=== PATIENT | female | born 2000 | race Caucasian/White ===

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

== ENCOUNTER 2019-03-03 16:38 | Emergency (ER) | payer OTHER ==
[~2019-03-03] VITALS: Ht 167 cm; Wt 88.9 kg
[~2019-03-03 16:38] MED LIST changes: +AMOX-358 PO
[2019-03-03] MEDS ORDERED: DEXT20TA8 (17:01)
--- NOTE | 2019-03-03 18:10 | ED General ---
General Chief Complaint: Cough/Cold/Flu Symptoms Stated Complaint: CONGESTION/HEADACHE Nursing Triage Note: COUGH, CONGESTION, HEADACHE, AND BODY ACHES. HAS TAKEN TYLENOL AND NYQUIL TODAY. Nursing Sepsis Screen: No Definite Risk History of Present Illness Date Seen by Provider: Mar 03, 2019 Time Seen by Provider: 17:00 Initial Comments 19-year-old female presents for cough, congestion, headache and body aches. She's been using DayQuil and NyQuil with some improvement in her symptoms. 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 Timing/Duration: 1-2 Days Severity: Mild Associated Systoms: Cough, Headaches; No Loss of Appetite; Malaise; No Nausea/Vomiting, No Seizure, No Shortness of Air, No Syncope; Weakness Allergies and Home Medications Allergies Coded Allergies: No Known Drug Allergies (Unverified , 01/21/18) Patient Home Medication List Home Medication List Reviewed: Yes Review of Systems Review of Systems Constitutional: no symptoms reported, see HPI; No chills, No diaphoresis, No fever; malaise EENTM: see HPI, no symptoms reported Respiratory: see HPI, cough; No phlegm, No short of breath Gastrointestinal: no symptoms reported, see HPI Genitourinary: no symptoms reported, see HPI Skin: no symptoms reported, see HPI Past Ntllzoj-Mkdnsa-Dmgzwz Hx Past Med/Social Hx: Reviewed Nursing Past Med/Soc Hx Patient Social History Alcohol Use: Occasionally Uses Recreational Drug Use: No Smoking Status: Never a Smoker Recent Foreign Travel: No Contact w/Someone Who Travel: No Recent Infectious Disease Expo: No Recent Hopitalizations: No Past Medical History Surgeries: Yes (DENTAL) Respiratory: No Cardiac: No Neurological: No Last Menstrual Period: Mar 03, 2019 Genitourinary: No Gastrointestinal: No Musculoskeletal: No Endocrine: No HEENT: No Cancer: No Psychosocial: No Blood Disorders: Yes (IGA DEF) Physical Exam Vital Signs Vital Signs - First Documented 03/03/19 16:50 Temp 36.7 Pulse 90 Resp 16 B/P (MAP) 141/80 (100) Pulse Ox 98 O2 Delivery Room Air Capillary Refill : Less Than 3 Seconds Height, Weight, BMI Height: 5'7.00" Weight: 188lbs. oz. 85.232242sp; 31.00 BMI Method:Stated General Appearance: No Apparent Distress, WD/WN Eyes: Bilateral Eye Normal Inspection, Bilateral Eye PERRL, Bilateral Eye EOMI HEENT: PERRL/EOMI, TMs Normal, Normal ENT Inspection; No Pharyngeal Erythema, No Tonsillar Exudate; Tonsillar Enlargement (no erythema or exudate) Neck: Full Range of Motion, Normal Inspection, Non Tender, Carotid Bruit Respiratory: Chest Non Tender, Lungs Clear, Normal Breath Sounds Cardiovascular: Regular Rate, Rhythm, No Murmur, Normal Peripheral Pulses Gastrointestinal: Normal Bowel Sounds, Non Tender, Soft Neurologic/Psychiatric: Alert, Oriented x3, No Motor/Sensory Deficits, Normal Mood/Affect Skin: Normal Color, Warm/Dry, Other (left upper arm, site of tick bite healed, no erythema, induration, or warmth) Lymphatic: No Adenopathy Progress/Results/Core Measures Suspected Sepsis Recent Fever Within 48 Hours: No Infection Criteria Present: Suspected New Infection New/Unexplained Altered Menta: No Sepsis Screen: No Definite Risk SIRS Temperature: Pulse: 90 Respiratory Rate: 16 Laboratory Tests 03/03/19 18:04: White Blood Count 10.0 Blood Pressure 141 /80 Mean: 100 Laboratory Tests 03/03/19 18:04: Platelet Count 257 Results/Orders Lab Results Laboratory Tests Test 03/03/19 18:04 Range/Units White Blood Count 10.0 4.3-11.0 10^3/uL Red Blood Count 5.23 4.35-5.85 10^6/uL Hemoglobin 14.5 11.5-16.0 G/DL Hematocrit 44 35-52 % Mean Corpuscular Volume 85 80-99 FL Mean Corpuscular Hemoglobin 28 25-34 PG Mean Corpuscular Hemoglobin Concent 33 32-36 G/DL Red Cell Distribution Width 15.5 H 10.0-14.5 % Platelet Count 257 130-400 10^3/uL Mean Platelet Volume 9.5 7.4-10.4 FL Neutrophils (%) (Auto) 78 H 42-75 % Lymphocytes (%) (Auto) 13 12-44 % Monocytes (%) (Auto) 8 0-12 % Eosinophils (%) (Auto) 1 0-10 % Basophils (%) (Auto) 0 0-10 % Neutrophils # (Auto) 7.8 1.8-7.8 X 10^3 Lymphocytes # (Auto) 1.3 1.0-4.0 X 10^3 Monocytes # (Auto) 0.8 0.0-1.0 X 10^3 Eosinophils # (Auto) 0.1 0.0-0.3 10^3/uL Basophils # (Auto) 0.0 0.0-0.1 10^3/uL Micro Results Microbiology 03/03/19 Influenza Types A,B Antigen (TASH) - Final, Complete My Orders Orders - HEMAL WALSH Influenza A And B Antigens (03/03/19 17:06) Cbc With Automated Diff (03/03/19 17:43) Comprehensive Metabolic Panel (03/03/19 17:43) Vital Signs/I&O 03/03/19 16:50 Temp 36.7 Pulse 90 Resp 16 B/P (MAP) 141/80 (100) Pulse Ox 98 O2 Delivery Room Air Capillary Refill : Less Than 3 Seconds Blood Pressure Mean: 100 Departure Impression Primary Impression: Viral upper respiratory illness Disposition: 01 HOME, SELF-CARE Condition: Improved Departure-Patient Inst. Decision time for Depature: 18:30 Referrals: NO,LOCAL PHYSICIAN (PCP/Family) Primary Care Physician Patient Instructions: Viral Upper Respiratory Infection, Adult (DC) Add. Discharge Instructions: Continue to use DayQuil and NyQuil. Increase water intake, 16 ounces every 2 hours while awake. Alternate between Tylenol 650 mg and ibuprofen 600 mg every 4 hours for fever or pain. Follow-up at [facility] [place] if symptoms are not improving or worsen. Return to the emergency department for new, urgent health care needs. All discharge instructions reviewed with patient and/or family. Voiced understanding. Copy Copies To 1: TOM VILLARREAL MD, AMY ARNP Mar 03, 2019 18:10
[2019-03-03 18:14] LABS: BASOPHILS % (AUTO) 0 % (0-10); EOSINOPHILS # (AUTO) 0.1 10^3/uL (0.0-0.3); EOSINOPHILS % (AUTO) 1 % (0-10); HEMATOCRIT 44 % (35-52); HEMOGLOBIN 14.5 G/DL (11.5-16.0); LYMPHOCYTES # (AUTO) 1.3 X 10^3 (1.0-4.0); LYMPHOCYTES % (AUTO) 13 % (12-44); MEAN CORPUSCULAR HEMOGLOBIN 28 PG (25-34); MEAN CORPUSCULAR HGB CONC 33 G/DL (32-36); MEAN CORPUSCULAR VOLUME 85 FL (80-99); MEAN PLATELET VOLUME 9.5 FL (7.4-10.4); MONOCYTES # (AUTO) 0.8 X 10^3 (0.0-1.0); MONOCYTES % (AUTO) 8 % (0-12); NEUTROPHILS # (AUTO) 7.8 X 10^3 (1.8-7.8); NEUTROPHILS % (AUTO) 78 % (42-75); PLATELET COUNT 257 10^3/uL (130-400); RED CELL DISTRIBUTION WIDTH 15.5 % (10.0-14.5)
[2019-03-03 18:31] LABS: ALANINE AMINOTRANSFERASE 20 U/L (0-55); ALBUMIN 4.6 GM/DL (3.2-4.5); ALKALINE PHOSPHATASE 82 U/L (40-136); BILIRUBIN,TOTAL 0.7 MG/DL (0.1-1.0); BUN/CREATININE RATIO 11; CALCIUM 9.4 MG/DL (8.5-10.1); CARBON DIOXIDE 26 MMOL/L (21-32); CHLORIDE 105 MMOL/L (98-107); CREATININE SERUM 0.72 MG/DL (0.60-1.30); GFR ESTIMATED > 60; GLUCOSE 102 MG/DL (70-105); POTASSIUM 3.2 MMOL/L (3.6-5.0); SODIUM 140 MMOL/L (135-145); TOTAL PROTEIN 7.6 GM/DL (6.4-8.2)
[2019-03-03 18:41] VITALS: BP 141/80
[2019-03-03] MEDS ORDERED: KCL 10 MEQ TAB (MICRO K) PO ONE (18:45)
== END 2019-03-03 18:41 | disposition home or self-care (01) ==
LOC: EDUNIT# 16:38 → ER 16:39
DX: J06.9 Acute upper respiratory infection, unspecified (principal)
CPT/HCPCS: 36415; 80053; 85025; 87804